=== PATIENT | female | born 1935 | race Two or more races ===

== ENCOUNTER 2021-01-17 07:29 | Emergency (ER) | payer OTHER ==
[~2021-01-17] VITALS: Ht 157.5 cm; Wt 57.6 kg
[2021-01-17] MEDS ORDERED: COZAAR100 MG PO (07:45)
[2021-01-17] MEDS ORDERED: COZAAR25 MG (07:45)
[2021-01-17] MEDS ORDERED: COREG CR10 MG (07:45)
[2021-01-17] MEDS ORDERED: TERAZOSIN HCL1 M1 (07:46)
== END 2021-01-17 11:01 | disposition home or self-care (01) ==
LOC: ER 07:29
DX: G89.11 Acute pain due to trauma (principal); M54.59 Other low back pain; B19.20 Unspecified viral hepatitis C without hepatic coma; R07.81 Pleurodynia; S70.11XS Contusion of right thigh, sequela; S70.12XS Contusion of left thigh, sequela; W18.09XS Striking against other object with subsequent fall, sequela